=== PATIENT | male | born 1935 | race Caucasian/White ===

== ENCOUNTER 2017-04-20 10:01 | Inpatient (IN) | payer OTHER ==
[~2017-04-20] VITALS: Ht 180.3 cm; Wt 108.0 kg
[~2017-04-20 10:01] MED LIST: AUGMENTIN875 MG PO; BABY ASPIRIN81 M1 PO; Coumadin,Jantoven PO; Ecotrin PO; METHIMAZOLE5 MG PO; Methimazole PO; Percocet 5/325,Endoc PO; Senokot S,Pericolace PO; celeBREX PO; oxyCODONE PO
[2017-04-20 11:09] LABS: HEMATOCRIT 41.9 % (38.0-50.0); MCHC 33.4 G/DL (30.0-36.0); MCV 95.7 FL (86-99); MEAN PLAT.VOLUME 10.5 uM^3 (9.0-12.4); PLATELET COUNT 142 K/uL (156-360); RBC DIS.WIDTH-CV 12.8 % (11.8-14.6); RBC DIS.WIDTH-SD 45.3 % (39-53); RED BLOOD COUNT 4.38 M/uL (4.00-5.50); WHITE BLOOD COUNT 4.6 K/uL (4.1-10.2)
[2017-04-20 11:30] LABS: TROP-I INTERPRETATION POSITIVE
[2017-04-20 11:31] LABS: CHLORIDE 102 mEq/L (99-109); POTASSIUM 4.8 mEq/L (3.7-5.4); SODIUM 139 mEq/L (136-147)
[2017-04-20 11:33] LABS: GLUCOSE 133 mg/dL (70-99)
[2017-04-20 11:34] LABS: ANION GAP 8 MEQ/L (2-14)
[2017-04-20 11:35] LABS: TOTAL BILIRUBIN 0.7 mg/dL (0.0-1.0)
[2017-04-20 11:36] LABS: ALKALINE PHOSPHATASE 96 IU/L (3-129)
[2017-04-20 11:37] LABS: GFR ESTIMATE (CALCULATED) > 59 mL/min/ (58.99-99999)
[2017-04-20 11:38] LABS: UREA NITROGEN (BUN) 15 mg/dL (9-23)
[2017-04-20 13:34] LABS: INTER. NORMALIZED RATIO 1.1
[2017-04-20 13:36] LABS: PTT 29.8 SEC (25-37)
[2017-04-20 13:50] LABS: HDL CHOLESTEROL 46 MG/DL (Desirable>=40); LDL CHOLESTEROL 88 mg/dL (Desirable<100); NON-HDL CHOLESTEROL 100 mg/dL (Desirable<160); TOTAL CHOLESTEROL 146 mg/dL (Desirable<200); TRIGLYCERIDES 59 MG/DL (Normal: <150)
[2017-04-20 14:42] LABS: Estimated Average Glucose 151 mg/dL (70-123); HEMOGLOBIN A1c (GLYCOHEMOGLOB) 6.9 % HGB (Below 5.7)
[2017-04-20 18:13] VITALS: BP 118/73
[2017-04-20 19:14] VITALS: BP 127/73
[2017-04-20 19:59] LABS: TROP-I INTERPRETATION POSITIVE; TROPONIN-I 3.14 ng/mL (0.0-0.30)
[2017-04-20 23:29] VITALS: BP 110/71
[2017-04-21 01:03] LABS: TROP-I INTERPRETATION POSITIVE
[2017-04-21 01:09] LABS: TROPONIN-I 2.96 ng/mL (0.0-0.30)
[2017-04-21 04:05] VITALS: BP 133/70
[2017-04-21 08:00] VITALS: BP 133/73
[2017-04-21] MEDS ORDERED: LO-DOSE ASPIRIN81 M2 PO (11:51)
[2017-04-21] MEDS ORDERED: METHIMAZOLE5 MG PO (11:53)
[2017-04-21] MEDS ORDERED: SENOKOT S,PE1 TABLET PO (11:54)
[2017-04-21 11:58] VITALS: BP 106/71
[2017-04-21 12:37] LABS: ANION GAP 6 MEQ/L (2-14); CHLORIDE 100 MEQ/L (99-109); GFR ESTIMATE (CALCULATED) > 59 mL/min/ (58.99-99999); GLUCOSE 157 mg/dL (70-99); POTASSIUM 4.4 MEQ/L (3.7-5.4); SAMPLE HEMOLYSIS CHECK 0; SAMPLE ICTERIC CHECK 0; SAMPLE LIPEMIA CHECK 0; SODIUM 136 MEQ/L (136-147); UREA NITROGEN (BUN) 20 mg/dL (9-23)
[2017-04-21 16:00] VITALS: BP 135/91
[2017-04-21 19:11] VITALS: BP 115/57
[2017-04-21 23:23] VITALS: BP 123/67
[2017-04-22 04:00] VITALS: BP 159/84
[2017-04-22 08:00] VITALS: BP 120/67
[2017-04-22 11:39] VITALS: BP 124/84
[2017-04-22] MEDS ORDERED: ATORVASTATIN CA40 MG PO (13:02)
[2017-04-22] MEDS ORDERED: SPIRONOLACTONE25 MG PO (13:02)
[2017-04-22] MEDS ORDERED: LOSARTAN POTASS25 MG PO (13:02)
[2017-04-22] MEDS ORDERED: LOPRESSOR25 MG PO (13:02)
[2017-04-22] MEDS ORDERED: ELIQUIS5 MG PO (13:02)
[2017-04-22] MEDS ORDERED: NITROSTAT0.4 MG SL (13:02)
== END 2017-04-22 17:16 | disposition home or self-care (01) | DRG 281 ==
LOC: EME 10:01 → EDOF 12:04 → ENRESERV 12:12 → EDOF 12:26 → ENRESERV 15:25 → EDOF 15:38 → 4EAST 17:50
PROVIDERS: Emergency Medicine; Internal Medicine; Internal Medicine Cardiovascular Disease
DX: I21.4 Non-ST elevation (NSTEMI) myocardial infarction (principal); I50.42 Chronic combined systolic (congestive) and diastolic (congestive) heart failure; I48.91 Unspecified atrial fibrillation; E03.9 Hypothyroidism, unspecified; I25.5 Ischemic cardiomyopathy; I11.0 Hypertensive heart disease with heart failure; E05.90 Thyrotoxicosis, unspecified without thyrotoxic crisis or storm; I25.10 Atherosclerotic heart disease of native coronary artery without angina pectoris; J98.11 Atelectasis; E78.5 Hyperlipidemia, unspecified; E11.9 Type 2 diabetes mellitus without complications; I71.4 Abdominal aortic aneurysm, without rupture; Z86.73 Personal history of transient ischemic attack (TIA), and cerebral infarction without residual deficits; Z96.653 Presence of artificial knee joint, bilateral; Z86.718 Personal history of other venous thrombosis and embolism; Z68.28 Body mass index [BMI] 28.0-28.9, adult; Z95.1 Presence of aortocoronary bypass graft; I25.2 Old myocardial infarction; Z87.891 Personal history of nicotine dependence; Z82.49 Family history of ischemic heart disease and other diseases of the circulatory system; Z83.3 Family history of diabetes mellitus; R09.02 Hypoxemia
CPT/HCPCS: 71010; 80048; 80053; 80061; 83036; 83880; 84439; 84443; 84481; 84484; 85027; 85610; 85730; 93005; 99281; 99285; C1769; C1887; J1644; J1650; J1940; J2250; J3010; J7040